=== PATIENT | female | born 1955 | race Caucasian/White ===

== ENCOUNTER 2022-01-26 16:45 | Emergency (ER) | payer MEDICARE, SELFPAY ==
[2022-01-26] VITALS (38 sets, daily range): BP systolic 55–206; BP diastolic 29–152; PULSE 42–179; RESP 6–44; TEMP 35.7–37; O2SAT 66–100
--- NOTE | ~2022-01-26 | XR_ITS ---
EXAMINATION: XR chest ET placement Exam Date/Time: 01/26/2022 17:50 CDT HISTORY: RECHECK ON ET PLACEMENT Comparison: Same date at 5:28 PM. RESULT: Lines, tubes, and devices: Endotracheal tube now terminates 2 cm above the flaco. NG tube remains i n stable and good position. Cholecystectomy clips. Lungs and pleura: Increased left basilar consolidation, otherwise point opacities are unchanged give n interval differences in technique. Cardiomediastinal silhouette: Stable cardiomediastinal silhouette. Other: No acute osseous or upper abdominal finding. IMPRESSION: Endotracheal tube now in good position. Increased left basilar consolidation may reflect atelectasis given the short time interval. Pulmonary opacities otherwise unchanged. Reviewed, dictated and finalized at location K. IMPRESSION: Endotracheal tube now in good position. Increased left basilar consolidation ma y reflect atelectasis given the short time interval. Pulmonary opacities otherw ise unchanged.
--- NOTE | ~2022-01-26 | XR_ITS ---
EXAMINATION: XR chest ET placement, XR abdomen NG/feed tube insert Exam Date/Time: 01/26/2022 17:25 CDT HISTORY: tube placement Comparison: None available. RESULT: Lines, tubes, and devices: Endotracheal tube terminates in the right mainstem bronchus. Nasogastric tube terminates in the stomach. Lungs and pleura: Diffuse bilateral reticular opacities with patchy areas of groundglass. Left angle blunting. Cardiomediastinal silhouette: Stable cardiomediastinal silhouette. Other: No acute osseous or upper abdominal finding. IMPRESSION: Right mainstem bronchus intubation, consider retraction. NG tube in good position. Severe pulmonary e mariela, infection not excluded. Likely small left pleural effusion. Results reported telephonically to Dr. Haro by Dr. Craft at 5:42 PM on 01/27/2020. Reviewed, dictated and finalized at location K. IMPRESSION: Right mainstem bronchus intubation, consider retraction. NG tube in good positi on. Severe pulmonary edema, infection not excluded. Likely small left pleural e ffusion. Results reported telephonically to Dr. Haro by Dr. Craft at 5:42 PM on 2019.
--- NOTE | 2022-01-26 17:00 | PC.NURSE ---
PER ERP RN to Pull ET tube back 4 cm pt. ET tube measuring at 24 at the lip.
--- NOTE | 2022-01-26 17:11 | ECG_ITS ---
Measurements Intervals [place] Rate: 56 P: MS: 0 QRS: -66 QRSD: 173 T: -18 QT: 403 QTc: 391 Interpretive Statements SUPRAVENTRICULAR TACHYCARDIA POSSIBLE ATRIAL FLUTTER WITH RAPID VENTRICULAR RESPONSE WITH INTERMITTENT SINUS RHYTHM LEFT AXIS DEVIATION RIGHT BUNDLE BRANCH BLOCK MODERATE VOLTAGE CRITERIA FOR LVH ST AND T-WAVE ABNORMALITY, CONSIDER MYOCARDIAL ISCHEMIA SEPTAL AND HIGH LATERAL LEADS ABNORMAL ECG COMPARED TO ECG 01/26/2022 17:04:34 ATRIAL FIBRILLATION NOW PRESENT Electronically Signed On 01-27-2022 14:29:53 CDT by Gaudencio Landa M.D.
--- NOTE | 2022-01-26 17:11 | ECG_ITS ---
Measurements Intervals [place] Rate: 29 P: NV: 0 QRS: -64 QRSD: 149 T: 0 QT: 370 QTc: 260 Interpretive Statements LOW JUNCTIONAL ESCAPE RHYTHM WITH HIGH GRADE AV BLOCK BASELINE ARTIFACT LEFT AXIS DEVIATION RIGHT BUNDLE BRANCH BLOCK LEFT VENTRICULAR HYPERTROPHY AND ST-T CHANGE ABNORMAL ECG NO PREVIOUS ECG AVAILABLE FOR COMPARISON Electronically Signed On 01-27-2022 14:27:20 CDT by Gaudencio Landa M.D.
[2022-01-26 17:17] LABS: Basophils Absolute Auto 0.1 K/mm3 (0.0-0.1); Basophils Percent Auto 0.8 % (0.2-1.2); Eosinophils Absolute Auto 0.1 K/mm3 (0-0.3); Eosinophils Percent Auto 0.8 % (0-4.4); Hematocrit 40.6 % (37.0-47.0); Hemoglobin 11.9 g/dL (12.0-15.0); Immature Granulocyte Absolute 0.43 K/mm3 (0.00-0.031); Lymphocytes Absolute Auto 1.99 K/mm3 (0.9-3.2); Lymphocytes Percent Auto 23.2 % (18.3-44.2); Mean Corpuscular HGB Conc 29.3 g/dl (32-36); Mean Corpuscular Hemoglobin 32.2 pg (26-34); Mean Platelet Volume 11.8 fl (7.4-10.4); Monocytes Absolute Auto 0.5 K/mm3 (0.1-0.6); Monocytes Percent Auto 6.3 % (2.6-8.5); Neutrophils Absolute Auto 5.5 K/mm3 (1.3-6.7); Neutrophils Percent Auto 63.9 % (45.5-73.1); Nucleated Red Blood Cells Absolute Auto 0.1 K/mm3 (0.0-0.012); Nucleated Red Blood Cells Perc 0.9 % (0.0-0.2); Platelet Count Result 234 k/mm3 (150-375); Red Blood Count 3.69 M/mm3 (4.2-5.4); White Blood Count 8.6 K/mm3 (4.5-10.0)
[2022-01-26 17:19] LABS: Alanine Aminotransferase 234 U/L (6-35); Alkaline Phosphatase 125 U/L (38-126); Anion Gap 15 mmol/L (8-16); Aspartate Amino Transferase 419 U/L (14-36); Bilirubin,Total 0.3 mg/dL (0.2-1.3); Blood Urea Nitrogen 62 mg/dL (7-17); Calcium 9.2 mg/dL (8.4-10.2); Carbon Dioxide 27 mmol/L (22-30); Chloride 98 mmol/L (98-107); Estimated Glomerular Filt Rate 19; Glucose 233 mg/dL (65-110); Potassium 4.1 mmol/L (3.4-5.0); Sodium 140 mmol/L (137-145)
[2022-01-26 17:34] LABS: INR 1.2
[2022-01-26 17:35] LABS: Partial Thromboplastin Time 39.8 SECONDS (22.3-36.8)
[2022-01-26 17:39] LABS: Troponin I 0.106 ng/mL (0.000-0.034)
[2022-01-26 17:42] LABS: Anisocytosis 2+ (NORMAL); Hypochromasia 1+ (NORMAL); Platelet Estimate Adequate (Adequate)
[2022-01-26] MEDS: EPINEPHrine INJ 1 MG in DEXTROSE 5% IN WATER 250 ML 15.06 MG IV CONT (17:50)
[2022-01-26 18:19] LABS: Base Excess ABG -6.9 mEq/l (+/-2.0); Device AMBU BAG; Fractional Inspired Oxygen 100 %; HCO3 ABG 20.8 mEq/l (22.0-26.0); Modified Allen's Test Pass; Oxygen Content ABG 13.3 %vol (16.0-22.0); Oxygen Saturation ABG 90.7 % (95.0-100.0); Oxyhemoglobin 88.8 % THb (90.0-100.0); PCO2 ABG 51.6 mmHg (35.0-45.0); PO2 ABG 70.4 mmHg (80.0-100.0); Site Drawn RIGHT RADIAL; Total Hemoglobin 10.6 g/dL (12.0-18.0); pH ABG 7.223 (7.350-7.450)
--- NOTE | 2022-01-26 19:02 | PC.NURSE ---
SEEDLING PULLER and ERP attempted femoral central line x 4. Unable to advance. Pt noted to be hypotensive, EPI gtt titrated and Liter of LR started under pressure bag. Pt has no pupillary response or movement to any stimuli, no sedation has been required.
--- NOTE | 2022-01-26 19:10 | PC.NURSE ---
Family invited to bedside. States they want to discuss and make a joint decision.
--- NOTE | 2022-01-26 19:13 | PC.NURSE ---
This Rn and hope MANAGER STUDIO at bedside with pt.
--- NOTE | 2022-01-26 19:37 | PC.NURSE ---
This RN and Hope INVESTMENT STRATEGIST called back to bedside. Pt noted to be 81% on vent, settings of Fi02 100%, Peep 9, TV 400 ml , 22 rate. Pt noted to have hr of 66. Family aware in change in pts condition. States they are going to speak to other family and make a decision. Family is aware pt is not stable enough to take to imaging or ICU at this time.
--- NOTE | 2022-01-26 19:53 | PC.NURSE ---
pt noted to be 83% on vent, ASSEMBLER MOVEMENT Hope given respirations via BVM
--- NOTE | 2022-01-26 20:04 | PC.NURSE ---
Family invited back to bedside
--- NOTE | 2022-01-26 20:07 | PC.NURSE ---
Decision to withdraw care decided by family. Family at bedside to visit with pt. Epi GTT stopped. Extubated and placed on oxygen at 2 lpm nc for comfort.
--- NOTE | 2022-01-26 20:12 | PC.NURSE ---
ETT and OG tube removed. Family at bedside with pt.
--- NOTE | 2022-01-26 20:17 | PC.NURSE ---
Time of 2017
--- NOTE | 2022-01-26 20:20 | ED.CPR ---
HPI - CPR General Chief Complaint: Cardiac Arrest/CPR Stated Complaint: Code Blue History of Present Illness HPI narrative: Pt told her brother that she felt a little weak but still wanted to go to her doctor's appointment. Her brother said she told him she felt SOB and then went unresponsive in the car. CPR started and 911 arrived about 5 minutes later. Pt was intubated and had pulse briefly then in PEA. Pt given epi a few doses in route. About 25 minutes total down time on arrival. Related Data Allergies Allergy/AdvReac Type Severity Reaction Status Date / Time ampicillin Allergy Mild RASH Verified 05/19/10 11:08 Penicillins Allergy Mild RASH Verified 05/19/10 11:08 Review of Systems Review of Systems: ROS unobtainable: Yes unobtainable due to medical condition Exam Const: Nutritional Appearance: well nourished Other: pt intubated CPR in progress Eyes: Conjunctivae: conjunctivae normal Other: pupils fixed and dilated Neck: Neck: normal visual inspection Chest: Other: upper chest and face and neck cyanotic Resp: Other: no spontaneous respirations Cardio: Other: no heart activity on auscultation initially Skin: General skin exam: pallor Wounds: no wounds Neuro: Other: unresponsive Extrem: General: no pedal edema Course Course Emergency Course: pt very unstable entire visit, Pt on epi drip but pressures volatile but stayed mostly in 70's and 80's, pt sas dropped and PEEP in creased on vent but had to be periodically bagged to get sats up. Shanice Turner NP attempted central line under US guidance without success. Pt not stable enough to take to CT or ICU. Had long talk with family and told of poor prognosis and that we were keeping her alive with the vent and epi drip and that her brain had been without oxyen for long time. Family decided to stop efforts. Pt extubated and epi drip stopped. Family at beside as HR slowly got more bradycardic and then eventually asystolic. Pt pronounced with family present. See sheet for official times Vital Signs Vital signs: Vital Signs Pulse Rate 103 H 01/26/22 16:49 Blood Pressure 188/65 H 01/26/22 16:49 Temperature 96.4 F L 01/26/22 20:00 Pulse Rate 63 01/26/22 20:13 Respiratory Rate 6 L 01/26/22 20:13 Blood Pressure 66/35 L 01/26/22 20:13 Pulse Oximetry 66 L 01/26/22 20:13 Oxygen Delivery Mechanical Ventilation 01/26/22 18:25 Fraction of Inspired Oxygen 100 01/26/22 18:25 MDM - Cardiac Arrest/CPR Lab Data Result diagrams: 01/26/22 16:53 01/26/22 16:53 Labs: Lab Results 01/26/22 01/26/22 01/26/22 Range/Units 16:53 16:53 16:53 WBC 8.6 (4.5-10.0) K/mm3 RBC 3.69 L (4.2-5.4) M/mm3 Hgb 11.9 L (12.0-15.0) g/dL Hct 40.6 (37.0-47.0) % MCV 110.0 H (80-100) fl MCH 32.2 (26-34) pg MCHC 29.3 L (32-36) g/dl RDW 15.0 H (11.5-14.5) % Plt Count 234 (150-375) k/mm3 MPV 11.8 H (7.4-10.4) fl Immature Gran % (Auto) 5.0 H (0-0.5) % Neut % (Auto) 63.9 (45.5-73.1) % Lymph % (Auto) 23.2 (18.3-44.2) % [place] % (Auto) 6.3 (2.6-8.5) % Eos % (Auto) 0.8 (0-4.4) % Baso % (Auto) 0.8 (0.2-1.2) % Lymph # (Auto) 1.99 (0.9-3.2) K/mm3 [place] # (Auto) 0.5 (0.1-0.6) K/mm3 Eos # (Auto) 0.1 (0-0.3) K/mm3 Baso # (Auto) 0.1 (0.0-0.1) K/mm3 Abs Immat Gran (auto) 0.43 H (0.00-0.031) K/mm3 Absolute Neuts (auto) 5.5 (1.3-6.7) K/mm3 Absolute Nucleated RBC 0.1 H (0.0-0.012) K/mm3 Nucleated RBC % 0.9 H (0.0-0.2) % Platelet Estimate Adequate (Adequate) Hypochromasia 1+ (NORMAL) Anisocytosis 2+ (NORMAL) PT 15.0 H (11.1-14.7) Seconds INR 1.2 APTT 39.8 H (22.3-36.8) SECONDS Sodium 140 (137-145) mmol/L Potassium 4.1 (3.4-5.0) mmol/L Chloride 98 (98-107) mmol/L Carbon Dioxide 27 (22-30) mmol/L Anion Gap 15 (8-16) mmol/L BUN 62 H (7-17) mg/dL Creatinine
--- NOTE | 2022-01-26 20:29 | PC.NURSE ---
Hospitalist notified of
--- NOTE | 2022-01-26 20:51 | PCRCNOTE ---
RT extubated pt and placed on 2L NC for comfort. RN and DO at bedside.
--- NOTE | 2022-01-26 21:04 | PC.NURSE ---
Addendum entered by Rosario López RN 01/26/22 21:07: overhead cleaner states do not call mts at this time until he can gather more info regarding pt's health hx Original Note: overhead cleaner notified of at 2050. he states that he will call family for more medical hx at 2050. he will call cathy back with determination
--- NOTE | 2022-01-26 21:34 | PC.NURSE ---
spoke with leon at [facility]. she will call back after she has talked with pt's family. still awaiting call from family regarding home
--- NOTE | 2022-01-26 21:54 | PC.NURSE ---
Ribeiro catheter removed, IV's removed. Pt to be taken to morgue awaiting home.
--- NOTE | 2022-01-26 21:57 | PC.NURSE ---
cole with mts after she speaks with pt family. she will obtain home info from brother and call back
--- NOTE | 2022-01-26 22:32 | PC.NURSE ---
[id number] called to report that no home has been chosen. [place] [facility] [place]. original form is at [employer] [facility] desk. copy sent with body to [facility]
--- NOTE | 2022-01-26 22:52 | PC.NURSE ---
Patient was taken to [facility] [place] at 2250.
--- NOTE | 2022-02-01 11:58 | P.PCNBED_ITS ---
Procedures Central Line Placement Right Femoral: Central Line Date: 01/26/22 Central Line Time: 17:00 Consent: I have discussed with the patient and/or surrogate, the non-emergent placement of a central venous catheter, including its clinical necessity/indication and associated potential risks and complications. The patient and/or surrogate understand(s) and acknowledge(s) the need to proceed with central venous catheter insertion as an important element of the patient's clinical management. Patient Position: supine Patient placed on monitor/pulse ox: Yes Provider Prep: mask, sterile gown, sterile gloves, Max. sterile barrier precautions, cap and hand hygiene with conventional soap/water or alcohol based hand rub Central line prep: 2% Chlorhexidine scrub Sterile US Technique with sterile gel/sterile probe covers: Yes Central line lumen inserted: triple [place]iqu[place]: 7 Additional comments: Unable to successfully place central line after multiple attempts under US guidance.
== END 2022-01-26 22:47 | disposition expired ==
PROVIDERS: Emergency Provider Emergency Medicine; PCP Internal Medicine
DX: I46.9 Cardiac arrest, cause unspecified (principal); I44.30 Unspecified atrioventricular block; I45.10 Unspecified right bundle-branch block; I51.7 Cardiomegaly; I47.1 Supraventricular tachycardia; R94.31 Abnormal electrocardiogram [ECG] [EKG]; J81.1 Chronic pulmonary edema; R06.02 Shortness of breath
CPT/HCPCS: 36415; 36556; 36600; 51702; 80053; 82805; 84484; 85025; 85610; 85730; 92950; 93005; 96365; 96366; 99285; C1751; J0171; J7030; J7060; J7120